=== PATIENT | male | born 1995 | race Caucasian/White ===

== ENCOUNTER 2016-05-19 08:07 | Emergency (ER) | payer OTHER ==
[2016-05-19 08:28] VITALS: BP 133/85
[2016-05-19 08:47] LABS: Urine Appearance Clear; Urine Bacteria TRACE; Urine Bilirubin Negative (NEGATIVE); Urine Blood Negative /ul (NEGATIVE); Urine Color Yellow; Urine Ketone Negative (NEGATIVE); Urine Nitrite Negative (NEGATIVE); Urine Protein Negative (NEGATIVE); Urine RBC None Seen /hpf (0-5); Urine Specific Gravity >=1.030 SP.GR. (1.005-1.030); Urine Urobilinogen Normal (NORMAL); Urine WBC 0-5 /hpf (0-5)
--- NOTE | 2016-05-19 10:04 | ERNOTE ---
Abdominal HPI - General Chief Complaint: Abdominal Pain Time Seen by Provider: 05/19/16 09:56 Source: patient Exam Limitations: no limitations - Immun/Allergies/Home Medications Immunizatons: IMMUNIZATION HX Immunizations Up to Date Yes History of Influenza Vaccine Yes Hx Pneumococcal Vaccination No Allergies/Adverse Reactions: Allergies Sulfa (Sulfonamide Antibiotics) Allergy (Unknown, Verified 05/19/16 08:29) Home Medications: HOME MEDICATIONS NK [No Home Medication] 05/19/16 [Last Taken Unknown] - History of Present Illness Narrative: Patient started with abdominal pain three days ago. It started periumbilical then moved more to both sides, nausea, no vomiting, last bowel movement three days ago Date (Duration): 05/16/16 Timing: intermittent Quality: moderate, cramping Review of Systems - Review of Systems Constitutional: Absent: recent illness, fever, chills ENT: Absent: nose congestion, sore throat Respiratory: Absent: shortness of breath, cough Cardiology: Absent: chest pain Gastrointestinal/Abdominal: Present: See HPI, nausea, constipation, abdominal pain. Absent: vomiting, diarrhea Genitourinary: Present: no symptoms reported Neurological: Absent: headache - Patient's Past Medical History Patient History - Medical: No pertinent hx Patient History - Cardiac/Respiratory: No pertinent hx Patient History - Cancer: No Hx of Cancer Patient History - Surgical Procedures: No surgical history Patient History - Other: None - Social History Living Situations: parents Abuse History: No History of abuse Psych History: No pertinent hx Smoking Status: Never smoker Have you smoked in the past 12 months: No Alcohol Use: none Drug Use: none - Immunizations Immunizations Up to Date: Yes Hx Pneumococcal Vaccination: No History of Influenza Vaccine: Yes Physical Exam - Physical Exam General Appearance: Present: wd/wn, alert, no apparent distress Respiratory: Present: no respiratory distress, normal breath sounds, no accessory muscle use, lungs clear Cardiovascular/Chest: Present: regular rate, rhythm, no murmur Gastrointestinal/Abdominal: Present: normal bowel sounds, nondistended, soft, tenderness - mild tenderness periumbilical and over left lateral abdomen Back Exam: Present: no CVA tenderness Neurological Exam: Present: alert, oriented, normal mood/affect Skin Exam: Present: normal color, warm/dry ED Progress - Results and Orders Patient's Lab Results:: I have reviewed the patient's lab results. - Vital Signs Patient's Vital Signs:: I have reviewed the patient's vital signs. Vital Signs: Vital Signs 05/19/16 08:25 Temperature 36.5 C Pulse Rate 90 Respiratory 16 Rate Blood Pressure 133/85 O2 Sat by Pulse 96 Oximetry - X-Ray X-Ray #1 X-Ray: abdomen - constipation Interpretation: Reviewed by me - Progress/Reassessment Chief Complaint: Abdominal Pain Progress Note-Subjective: 05/19/16 10:45 discussed results with patient and diagnosis of constipation Departure - Departure Clinical Impression: Constipation Qualifiers: Constipation type: unspecified constipation type Qualified Code(s): K59.00 - Constipation, unspecified Disposition: Home self-care Condition: Good Instructions: Constipation, Adult, [id number] Additional Instructions: take an over the counter laxative like magnesium citrate if you don't get any pain relieve with having a good bowel movement, start vomiting or get any other symptoms return to the ER Referrals: Hernan Menjivar MD [Staff Physician] -
== END 2016-05-19 10:59 | disposition home or self-care (01) ==
LOC: ER 08:07
DX: K59.00 Constipation, unspecified (principal)